=== PATIENT | male | born 1945 | race Caucasian/White ===

== ENCOUNTER 2016-06-23 07:33 | Day surgery (SDC) | payer OTHER ==
--- NOTE | ~2016-06-23 | EGD ---
EGD REPORT [facility] [address] [address] NAME: SERENA AL : 41 STATUS : REG [facility]#: [id number] AGE: 70 ADM/REG DATE : 06/23/16 MR#: [id number] REPORT SERV DATE: 06/23/16 DICTATED BY: VERN MERRITT DATE: 06/23/16 REPORT STATUS : Draft TRANSCRIBED BY: [facility] DATE: 06/23/16 [facility] Patient Name: Serena Al Date of : 1945 Attending MD: VERN MERRITT MD Procedure Date No Time: 06/23/2016 Procedure: Colonoscopy Indications: Hematochezia; UC dx 2007; balsalazide. Patient Profile: Informed consent was obtained from the patient by me prior to the procedure. Risks, benefits, and alternatives were discussed including the risk of bleeding, perforation, infection, reaction to medicine, missed lesion, and cardiopulmonary complications. Referring MD: Jcarlos Michelle Medicines: Monitored Anesthesia Care Complications: No immediate complications. Procedure: Pre-Anesthesia Assessment: - ASA Grade Assessment: III - A patient with severe systemic disease. After I obtained informed consent, the scope was passed under direct vision. Throughout the procedure, the patient's blood pressure, pulse, and oxygen saturations were monitored continuously. The adult colonoscope was introduced through the anus and advanced to the cecum, identified by appendiceal orifice and ileocecal valve. The colonoscope was slowly withdrawn with careful examination all mucosal surfaces including specific attention around flexures and tip deflection behind folds; retroflexion not performed in rectum due to inflammation; excellent views to dentate line. The colonoscopy was performed without difficulty. The patient tolerated the procedure well. The quality of the bowel preparation was adequate. The ileocecal valve, appendiceal orifice, terminal ileum and rectum were photographed. Findings: The terminal ileum appeared normal. The sigmoid colon, descending colon, transverse colon, ascending colon and cecum appeared normal. Four biopsies were taken every 10 cm with a cold forceps from the cecum, ascending colon, transverse colon, descending colon and sigmoid colon for ulcerative colitis surveillance. These biopsy specimens were sent to Pathology. Biopsies were taken with a cold forceps for histology. A diffuse area of moderately congested, erythematous and EGD REPORT [place] [id number] [facility] [place]. [address] NAME: SERENA AL : 41 STATUS : [place] [facility] [place] [facility] [place] PAT#: [id number] AGE: 70 ADM/REG DATE : 06/23/16 MR#: [id number] REPORT SERV DATE: 06/23/16 DICTATED BY: VERN MERRITT DATE: 06/23/16 REPORT STATUS : Draft TRANSCRIBED BY: [employer] DATE: 06/23/16 rdltirjm-wqdotek-tyctbhzyg mucosa was found in the sigmoid colon starting at 30cm. Biopsies were taken with a cold forceps for histology. A diffuse area of moderately congested, erythematous, ulcerated and nyaxfnij-mzinsmb-mvhyonnvy mucosa was found in the rectum. Biopsies were taken with a cold forceps for histology. Multiple medium-mouthed diverticula were found in the sigmoid colon and at the hepatic flexure. A sessile polyp was found in the ascending colon; no surrounding gross colitis. The polyp was 5 mm in size. The polyp was removed with a cold biopsy forceps. Resection and retrieval were complete. Impression: - The examined portion of the ileum was normal. - The sigmoid colon, descending colon, transverse colon, ascending colon and cecum are normal. Biopsied. - Congested, erythematous and ywdyjomk-pkpluad-dqwwpbfss mucosa in the sigmoid colon. Biopsied. - Congested, erythematous, ulcerated and vqvdxjep-ykmhsut-xvyahfsgj mucosa in the rectum. - Diverticulosis in the sigmoid colon and at the hepatic flexure. Recommendation: - Patient has a contact number available for emergencies. The signs and symptoms of potential delayed complications were discussed with the patient. Return to normal activities tomorrow. Written discharge instructions were provided to the patient. - Regular diet. - Continue present medications. - Await pathology results. - Repeat colonoscopy for surveillance based on pathology results. - Prednisone taper. Rowasa enemas. Procedure Code(s): --- Professional --- 35247, Colonoscopy, flexible, proximal to splenic flexure; with biopsy, single or multiple Diagnosis Code(s): --- Professional --- K57.30, Diverticulosis of large intestine without perforation or abscess without bleeding K63.89, Other specified diseases of intestine K62.6, Ulcer of anus and rectum K62.89, Other specified diseases of anus and rectum K92.1, Melena CPT copyright 2013 [employer]. All rights reserved. EGD REPORT [facility] [address] [place] [address] NAME: SERENA AL : 41 STATUS : REG [facility] [place] [facility] [place] PAT#: [id number] AGE: 70 ADM/REG DATE : 06/23/16 MR#: [id number] REPORT SERV DATE: 06/23/16 DICTATED BY: VERN MERRITT. DATE: 06/23/16 REPORT STATUS : Draft TRANSCRIBED BY: [employer] DATE: 06/23/16 The codes documented in this report are preliminary and upon packing tractor machine operator review may be revised to meet current compliance requirements. VERN MERRITT MD 06/23/2016 9:25 AM This report has been signed electronically. Number of Addenda: 0 Note Initiated On: 06/23/2016 8:24 AM Scope Withdrawal Time 0 hours 19 minutes 12 seconds [address] [place] [id number]
[~2016-06-23 07:33] MED LIST: ASAB PO; BALSALAZIDE750 MG OR; BALSALAZIDE750 MG PO; BETIMOL0.5 % OP; BETIMOL0.5 % OPH; COLAZAL 750 MG750 MG PO; COZ50 PO; COZAAR100 MG PO; CYANO1000T PO; DSS PO; DULERA 100 MCG/13 GM INH; HALF81 PO; HYDROCORT0.5 % EX; IMDUR30 PO; INSNOV7030 SC; INSNOVR SC; K500 PO; L20 PO; LEVAQUIN750 MG PO; LEVOTHYROXIN25 MCG PO; LIPITOR20 PO; LORTAB10 PO; NEUR600 PO; NITROSTAT0.4 MG SL; NORCO1 TAB PO; NOVOLOGMIX SC; PLAVIX PO; PRAVACHOL40 MG PO; PRILOSEC40 MG PO; PRIN20 PO; PROAIR HFA INH; PROSCAR5 PO; PROTONIX PO; PROVHFA INH; STOOL SOFTEN100 MG PO; SYMBICORT 160/41 INH INH; SYN.025B PO; ULTRAM50 PO; VITAMIN D1000 UNI1 PO; VITAMIN D31000 UNIT PO; ZANTAC 150 PO; ZITH250 PO; ZOVI800 PO
== END 2016-06-23 23:59 | disposition home or self-care (01) ==
LOC: DMU 07:33
PROVIDERS: Internal Medicine Gastroenterology
PROC: 0DBP8ZX Excision of Rectum, Via Natural or Artificial Opening Endoscopic, Diagnostic (ICD-10-PCS; 2016-06-23)
PROC: 0DBN8ZX Excision of Sigmoid Colon, Via Natural or Artificial Opening Endoscopic, Diagnostic (ICD-10-PCS; 2016-06-23)
PROC: 0DBH8ZX Excision of Cecum, Via Natural or Artificial Opening Endoscopic, Diagnostic (ICD-10-PCS; 2016-06-23)
PROC: 0DBK8ZX Excision of Ascending Colon, Via Natural or Artificial Opening Endoscopic, Diagnostic (ICD-10-PCS; 2016-06-23)
PROC: 0DBL8ZX Excision of Transverse Colon, Via Natural or Artificial Opening Endoscopic, Diagnostic (ICD-10-PCS; 2016-06-23)
PROC: 0DBM8ZX Excision of Descending Colon, Via Natural or Artificial Opening Endoscopic, Diagnostic (ICD-10-PCS; principal; 2016-06-23 09:00)
DX: K52.9 Noninfective gastroenteritis and colitis, unspecified (principal); K63.5 Polyp of colon; K57.30 Diverticulosis of large intestine without perforation or abscess without bleeding; I25.10 Atherosclerotic heart disease of native coronary artery without angina pectoris; I10 Essential (primary) hypertension; E03.9 Hypothyroidism, unspecified; E78.00 Pure hypercholesterolemia, unspecified; E11.40 Type 2 diabetes mellitus with diabetic neuropathy, unspecified; K64.9 Unspecified hemorrhoids; K44.9 Diaphragmatic hernia without obstruction or gangrene; K57.92 Diverticulitis of intestine, part unspecified, without perforation or abscess without bleeding; K22.70 Barrett's esophagus without dysplasia; G47.33 Obstructive sleep apnea (adult) (pediatric); H40.9 Unspecified glaucoma; M19.90 Unspecified osteoarthritis, unspecified site; F41.9 Anxiety disorder, unspecified; F32.9 Major depressive disorder, single episode, unspecified; Z95.5 Presence of coronary angioplasty implant and graft; Z88.8 Allergy status to other drugs, medicaments and biological substances; Z88.5 Allergy status to narcotic agent; Z88.1 Allergy status to other antibiotic agents; Z88.0 Allergy status to penicillin; Z79.4 Long term (current) use of insulin; Z79.82 Long term (current) use of aspirin; Z79.02 Long term (current) use of antithrombotics/antiplatelets; Z79.899 Other long term (current) drug therapy; Z96.651 Presence of right artificial knee joint; Z96.1 Presence of intraocular lens; Z98.41 Cataract extraction status, right eye; Z98.42 Cataract extraction status, left eye; Z90.2 Acquired absence of lung [part of]; Z87.891 Personal history of nicotine dependence; Z92.21 Personal history of antineoplastic chemotherapy; Z92.3 Personal history of irradiation; Z98.890 Other specified postprocedural states
CPT/HCPCS: 82962; 88305